=== PATIENT | female | born 1980 | race Caucasian/White ===

== ENCOUNTER 2018-06-12 13:58 | Emergency (ER) | payer OTHER, SELFPAY ==
[2018-06-12 14:03] VITALS: BP 148/100; PULSE 86; RESP 18; TEMP 37.4; O2SAT 98
--- NOTE | 2018-06-12 14:22 | ED.GENADUL_ITS ---
Discharge Plan Disposition Patient Disposition: HOME Condition: Good Discharge Details Chief Complaint: EarProblem Clinical Impression: Bilateral otitis externa ED Provider: Pedro Luis Reed Home Meds and New Rx's Prescriptions: New ciprofloxacin HCl [Cipro] 500 mg tablet 500 mg PO BID Qty: 20 RF: 0 No Action [id number] 3.5-10,000-1 mg/mL-unit/mL-% Solution 4 drp OTIC (EAR) QID RF: 0 citalopram 20 mg Tablet 20 mg PO DAILY RF: 0 Discharge Instructions Instructions: Otitis Externa (ED) Additional Instructions: Please take the oral antibiotic as directed. Please continue taking the drops as directed. If you notice any pain in your Achilles tendon, your joints, please stop performing a significant physical activity, and stop taking the antibiotic immediately as Cipro can cause some tendon damage with over exertion. If you notice any worsening of your symptoms, or any new symptoms such as vomiting, diarrhea, fever, chills, shortness of breath, chest pain, numbness, weakness, or fainting , please return immediately to the emergency department for reevaluation. Please follow up with your primary care provider as soon as possible for reassessment and reevaluation. As always, it was a pleasure participating in your medical care today. Medical Decision Making This is a very pleasant 37-year-old female who presents today for evaluation of ear pain bilaterally. She recently saw a urgent care for bilat eral ear pain and was diagnosed with otitis externa bilaterally. She has been taking these drops for the last few days but has not had a significant improvement. She does swim regularly. She also has been in a hot tub occasionally. Physical exam demonstrates evidence of bilateral otitis externa but no evidence of malignant otitis media or malignant otitis externa. No severe mastoid tenderness. No nuchal rigidity. Vital signs are stable, patient is currently afebrile. Because of the nature of her symptoms I do feel that she would benefit from enhanced treatment, we will prescribe ciprofloxacin 500 mg twice daily. test is negative. I discussed the risk factors and signs and symptoms for which to look out for with floor quinolone use. Will recommend continuation of the patient's neomycin polymyxin drops, as well as continued oral antibiotic use. We discussed the importance of close follow-up. Alejandra were placed in both the ears for enhanced topical antibiotic therapy. I have extensively reviewed the treatment plan and discharge instructions with the patient. I have addressed all patient concerns at this time. The patient was made aware of what symptoms to monitor for that would warrant a return to the emergency department. Discussed the plan with the patient, they demonstrate verbal understanding and agreement with our assessment and plan at this time. HPI General Date/Time Provider Initiated Documentation: 06/12/18 14:05 . Related Data Home Medications Medication Instructions Recorded Confirmed ciprofloxacin HCl [Cipro] 500 mg PO BID #20 tab 06/12/18 citalopram 20 mg PO DAILY 06/12/18 06/12/18 [id number] 4 drp OTIC (EAR) QID 06/12/18 06/12/18 Previous Rx's Medication Instructions Recorded ciprofloxacin HCl [Cipro] 500 mg PO BID #20 tab 06/12/18 Allergies Allergy/AdvReac Type Severity Reaction Status Date / Time No Known Allergies Allergy Unverified 06/12/18 14:21 General Stated Complaint: EarProblem YENNY: 4 Review of Systems Review of Systems All systems reviewed & are unremarkable except as noted in HPI and below PFSH Social History Smoking and Tabacco status: Never Exam Narrative Exam Narrative: 1.Const: Well-nourished, Well-developed, appearing stated age 2.Eyes: PERRL, no conjunctival injection, and symmetrical lids. 3.ENT: Atraumatic external nose and ears. Moist MM. Neck: Symmetric, trachea midline, No thyromegaly. Notable acute otitis externa bilaterally. No significant tenderness for the ears itself. Mild pain with movement of the tragus bilaterally. No evidence of severe discharge. No evidence of bleeding. Patient demonstrates good movement of cervical neck. There is no nuchal rigidity, no nuchal tenderness. Patient is able to flex the neck without any difficulty or significant pain. Negative Kernig's and Brudzinski sign. 4.CVS: +S1/S2, No murmurs or gallops. Peripheral pulses 2+ and equal in all extremities. Brisk capillary refill in all extremities. 5.RESP: Unlabored respiratory effort. Clear to auscultation bilaterally. No wheezes rales or rhonchi 6.GI: Soft, Nontender/Nondistended, No hepatosplenomegaly. No guarding or rebound. 7.MSK: Normocephalic/Atraumatic, Extremities w/o deformity or ttp No cyanosis or clubbing, Normal movement of all extremities 8.Skin: Warm, Dry. No rashes or lesions. 9.Neuro: licensed surveyor II-XII grossly intact. Sensation grossly intact, no focal neurologic deficits. 10.Psych: (AAO) x3. Appropriate mood and affect Course Vital Signs Temperature 37.4 C 06/12/18 14:03 Pulse 86 06/12/18 14:03 Respiratory Rate 18 06/12/18 14:03 Blood Pressure 148/100 H 06/12/18 14:03 Pulse Oximetry 98 06/12/18 14:03 Temperature 37.4 C 06/12/18 14:03 Temperature Source Oral 06/12/18 14:03 Pulse 86 06/12/18 14:03 Respiratory Rate 18 06/12/18 14:03 Blood Pressure 148/100 H 06/12/18 14:03 Blood Pressure Position Sitting 06/12/18 14:03 Pulse Oximetry 98 06/12/18 14:03 Oxygen Delivery Method Room Air 06/12/18 14:03 Oxygen Flow Rate 0 06/12/18 14:03 Pain Level 8 06/12/18 14:03
== END 2018-06-12 14:41 | disposition home or self-care (01) ==
PROVIDERS: Emergency Provider Student in an Organized Health Care Education/Training Program
DX: H60.93 Unspecified otitis externa, bilateral (principal)
CPT/HCPCS: 99283; 81003